=== PATIENT | female | born 1985 | race African-American/Black ===

== ENCOUNTER 2017-01-10 21:22 | Emergency (ER) | payer OTHER ==
[~2017-01-10] VITALS: Ht 165.1 cm; Wt 63.0 kg
[2017-01-10 21:25] VITALS: Ht 165.1 cm; Wt 63.0 kg
[2017-01-10] MEDS ORDERED: GUAI-637 PO (23:43)
[2017-01-10] MEDS ORDERED: IBUP400T22 PO (23:43)
[2017-01-10] MEDS ORDERED: BENZ100C70 PO (23:43)
--- NOTE | 2017-01-11 00:38 | ERD ---
ER Documentation Chief Complaint Chief Complaint BIB SELF C/O COUGH AND CONGESTION X 1 WEEK HPI She is a 31-year-old female who presents to the ED for concerns of a cough and nasal congestion 1 week. Patient describes her cough to be dry in nature. Patient denies any fevers. Patient denies any nausea, vomiting,abdominal pain or diarrhea. Patient does report mild throat pain. Patient reports generalized body aches. Patient does report patient's 3 children are also sick with similar symptoms and also being seen today. Patient denies any recent travel. ROS All systems reviewed and are negative except as per history of present illness. Medications Home Meds Active Scripts Guaifenesin* (Robitussin*) 100 Mg/5 Ml Syrup, 100 MG PO Q4H Y for COUGH, #1 BOT Prov:GLENN RUEDA PA-C 01/10/17 Benzonatate* (Tessalon Perle*) 100 Mg Capsule, 100 MG PO Q8H Y for COUGH, #15 CAP Prov:GLENN RUEDA PA-C 01/10/17 Ibuprofen* (Motrin*) 400 Mg Tab, 400 MG PO Q6, #30 TAB Prov:GLENN RUEDA PA-C 01/10/17 Allergies Allergies: Coded Allergies: No Known Allergy (Unverified , 03/09/14) PMhx/Soc History of Surgery: Yes (C SECTION) Hx Miscellaneous Medical Probl: Yes (TENDON PROBLEM; GASTRIC PROBLEMS) Hx Alcohol Use: No Hx Substance Use: No Hx Tobacco Use: No Smoking Status: Never smoker Physical Exam Vitals Vital Signs Date Time Temp Pulse Resp B/P Pulse Ox O2 Delivery O2 Flow Rate FiO2 01/10/17 21:25 98.0 95 185 113/70 99 Physical Exam GENERAL: Well-developed, well-nourished female. Appears in no acute distress. Speaking in full sentences. HEAD: Normocephalic, atraumatic. No deformities or ecchymosis. EYE: Pupils equal, round, and reactive to light. EOMs intact. No conjunctival erythema. No eye discharge. ENT: External ear without any masses or tenderness. Auditory canals clear bilaterally. TM visualized bilaterally, non-erythematous, non-bulging. Nasal mucosa pink with no discharge. Oropharynx is pink without any tonsillar erythema or exudates. No uvula deviation. No kissing tonsils. NECK: Supple. No meningismus. Normal ROM of the neck. LUNGS: Clear to auscultation bilaterally. No rhonchi, wheezing, rales or coarse breath sounds. HEART: Regular rate and rhythm. EXTREMITIES: Equal pulses bilaterally. No peripheral clubbing, cyanosis or edema. No unilateral leg swelling. NEUROLOGIC: Alert and oriented to person, place and time. Moving all four extremities. 5/5 strength in all extremities. Normal speech. Steady gait. SKIN: Normal color. Warm and dry. No rashes or lesions. Procedures/MDM MEDICAL DECISION MAKING: This is a 31-year-old female who presents with a cough and congestion 1 week. Patient denied any fevers. Patient's children are also sick with similar symptoms and are being seen today. Vital signs were reviewed. Patient was afebrile. Patient was not hypoxic. ENT exam was normal. Lung exam was normal. Given these findings, the patient's presentation is most consistent with viral URI. Low suspicion for pneumonia, meningitis, sinusitis, otitis externa, acute otitis media, strep pharyngitis, epiglottitis or peritonsillar abscess. PRESCRIPTIONS: Ibuprofen, Tessalon Perles, Robitussin DISCHARGE: At this time, patient is stable for discharge and outpatient management. Supportive therapies such as OTC throat lozenges, salt water gurgles, popsicles and jello discussed. I have instructed the patient to follow-up with his/her primary care physician in 1-2 days. I have instructed the patient to promptly return to the ER for any new or worsening symptoms including increased pain, swelling, fever, nausea, vomiting, weakness or difficulty breathing. The patient and/or family expressed understanding of and agreement with this plan. All questions were answered. Home care instructions were provided. Disclaimer: Inadvertent spelling and grammatical errors are likely due to EHR/ dictation software use and do not reflect on the overall quality of patient care. Also, please note that the electronic time recorded on this note does not necessarily reflect the actual time of the patient encounter. Departure Diagnosis: Primary Impression: Upper respiratory infection Condition: Stable Patient Instructions: Preventing Common Respiratory Infections Additional Instructions: Call your primary care doctor TOMORROW for an appointment during the next 1-2 days.See the doctor sooner or return here if your condition worsens before your appointment time. GLENN RUEDA PA-C Jan 11, 2017 00:38
== END 2017-01-10 23:54 | disposition home or self-care (01) ==
LOC: FTE 21:22
DX: J06.9 Acute upper respiratory infection, unspecified (principal)
CPT/HCPCS: 99283

== ENCOUNTER 2017-02-04 15:25 | Emergency (ER) | payer OTHER ==
[~2017-02-04] VITALS: Ht 167.6 cm; Wt 64.5 kg
[~2017-02-04 15:25] MED LIST: BENZ100C70 PO; GUAI-637 PO; IBUP400T22 PO
[2017-02-04 15:38] VITALS: Ht 167.6 cm; Wt 64.5 kg
[2017-02-04] MEDS ORDERED: GUAI120S26 PO (18:26)
[2017-02-04] MEDS ORDERED: FLUT9.9S NASAL (18:26)
[2017-02-04] MEDS ORDERED: ALBU8.5H3 INH (18:26)
[2017-02-04] MEDS ORDERED: CETI10CA PO (18:26)
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
== END 2017-02-04 19:00 | disposition home or self-care (01) ==
LOC: FTE 15:25
DX: J20.9 Acute bronchitis, unspecified (principal)
CPT/HCPCS: 99283

== ENCOUNTER 2017-03-12 15:42 | Emergency (ER) | END 2017-03-12 17:10 | disposition home or self-care (01) ==

== ENCOUNTER 2017-03-17 19:55 | Emergency (ER) | END 2017-03-17 20:33 | disposition home or self-care (01) ==